=== PATIENT | male | born 1965 | race Caucasian/White ===

== ENCOUNTER 2016-04-25 18:56 | Emergency (ER) | payer MEDICAID ==
[~2016-04-25] VITALS: Ht 182.9 cm; Wt 82.0 kg
[2016-04-25] MEDS ORDERED: MELO-273 PO (19:01)
[2016-04-25 21:23] VITALS: BP 135/85
[2016-04-25] MEDS ORDERED: ALLOPURINOL 100 MG TABLET PO ONE (21:30)
[2016-04-25] MEDS ORDERED: INDOMETHACIN 25 MG CAPSULE PO ONE (21:30)
[2016-04-25] MEDS ORDERED: OxyCODONE HCL/ACETAMINOPHEN 5-325 MG TABLET PO ONE (21:30)
== END 2016-04-25 21:54 | disposition home or self-care (01) ==
LOC: EMS 18:59
DX: M10.072 Idiopathic gout, left ankle and foot (principal); M10.071 Idiopathic gout, right ankle and foot; R50.9 Fever, unspecified
CPT/HCPCS: 99284